=== PATIENT | female | born 1995 | race Caucasian/White ===

== ENCOUNTER 2022-09-19 10:46 | Inpatient (IN) | payer MEDICAID, MEDICARE ==
[~2022-09-19] VITALS: Ht 160 cm; Wt 132.9 kg
[2022-09-19 11:06] VITALS: BP 123/71
--- NOTE | 2022-09-19 11:23 | NUR ---
Patient was wheelchair assisted to restroom, urine sample obtained.
--- NOTE | 2022-09-19 11:26 | NUR ---
Patient being evaluated by physician at bedside.
--- NOTE | 2022-09-19 11:50 | NUR ---
27 y/o female bib as a referal Dr. Golden's office. Per patient she was told she "has an opened cervix." Denies any pain or vaginal bleeding. Per patient, only takes baby Aspirin, Iron and Prenatals. LMP 04/28/22 Medical History: DM, HTN NKDA
--- NOTE | 2022-09-19 12:34 | NUR ---
Ultrasound at bedside.
[2022-09-19] MEDS ORDERED: ASPI-1822 PO (12:49)
[2022-09-19] MEDS ORDERED: FERR-13 PO (12:49)
[2022-09-19] MEDS ORDERED: PNV91TAB10 PO (12:49)
--- NOTE | 2022-09-19 12:49 | NUR ---
med rec complete
--- NOTE | 2022-09-19 14:12 | NUR ---
Patient is laying in bed, all needs met by staff.
[2022-09-19] MEDS ORDERED: DEXTROSE 50% 50 ML SYR IVP PRN (14:45)
[2022-09-19] MEDS ORDERED: NACL 0.9% 1,000 ML IV SCH (14:45)
[2022-09-19] MEDS ORDERED: ACETAMINOPHEN 325 MG TAB PO PRN (14:45)
[2022-09-19] MEDS ORDERED: INSULIN LISPRO SLIDING SCALE 100 UNITS/ML VIAL SUBQ PRN (14:45)
[2022-09-19 15:47] VITALS: BP 128/68
--- NOTE | 2022-09-19 15:47 | NUR ---
Patient will be admitted to care of Dr. Gurrola. Admited to L&D. Will go to room 4. Belongings list completed. Report to [email or web address].
[2022-09-19 15:51] LABS: BASOPHILS # (AUTO) 0.1 K/uL (0.00-0.22); BASOPHILS % (AUTO) 0.5 % (0.0-2.0); EOSINOPHILS # (AUTO) 0.1 K/uL (0-0.4); EOSINOPHILS % (AUTO) 0.7 % (0.0-4.0); HEMATOCRIT 34.5 % (36-48); HEMOGLOBIN 11.4 g/dL (12.0-16.0); LYMPHOCYTES # (AUTO) 3.3 K/uL (2.5-16.5); LYMPHOCYTES % (AUTO) 22.9 % (20.5-51.1); MEAN CORPUSCULAR HEMOGLOBIN 28 pg (27-31); MEAN CORPUSCULAR HGB CONC 33 g/dL (33-37); MEAN CORPUSCULAR VOLUME 85.1 fL (80-94); MONOCYTES # (AUTO) 0.8 K/uL (0.8-1.0); MONOCYTES % (AUTO) 5.5 % (1.7-9.3); NEUTROPHILS # (AUTO) 10.1 K/uL (1.8-7.7); NEUTROPHILS % (AUTO) 70.4 % (42.2-75.2); PLATELET COUNT (AUTO) 363 K/uL (140-450); RED BLOOD CELL COUNT(AUTO) 4.05 MIL/uL (4.20-5.40); RED CELL DISTRIBUTION WIDTH 14.7 % (11.6-13.7); WHITE BLOOD COUNT (AUTO) 14.3 K/uL (4.8-10.8)
[2022-09-19 16:10] LABS: PROTHROMBIN TIME 9.9 secs (10.8-13.4)
[2022-09-19 16:12] LABS: ANION GAP 12.8 (8-16); CARBON DIOXIDE 23.8 mmol/L (21-32); CREATININE 0.3 mg/dL (0.6-1.3); POTASSIUM 3.6 mmol/L (3.5-5.1)
[2022-09-19 16:24] LABS: CHOL/HDL RATIO 3.5 (1-4.5); FREE T4 (FREE THYROXINE) 0.92 ng/dL (0.76-1.46); MAGNESIUM 1.7 mg/dL (1.8-2.4); PHOSPHORUS 4.3 mg/dL (2.5-4.9)
[2022-09-19] MEDS ORDERED: BLOOD GLUCOSE MONITORING 1 DEV DEV FS SCH (16:30)
--- NOTE | 2022-09-19 16:44 | NUR ---
The patient's care was reviewed and supervised by [place] [facility], RN.
[2022-09-19] MEDS: LACTATED RINGERS 1,000 ML IV SCH (18:11)
[2022-09-19 20:11] LABS: APPEARANCE,URINE CLEAR (CLEAR); BILIRUBIN,URINE NEGATIVE (NEGATIVE); BLOOD, URINE NEGATIVE (NEGATIVE); COLOR,URINE YELLOW (YELLOW); LEUKOCYTE ESTERASE ,URINE NEGATIVE (NEGATIVE); NITRITE, URINE NEGATIVE (NEGATIVE); UGLUCOSE NEGATIVE (NEGATIVE)
[2022-09-19 20:35] LABS: BARBITURATE, URINE NEGATIVE ng/ml (NEG <=200); BENZODIAZEPINE, URINE NEGATIVE ng/mL (NEG <=200); CANNABINOID, URINE NEGATIVE ng/mL (NEG <=50); COCAINE, URINE NEGATIVE ng/mL (NEG <=300); OPIATE, URINE NEGATIVE ng/mL (NEG <=2000); PHENCYCLIDINE SCREEN,URINE NEGATIVE ng/mL (NEG <=25)
[2022-09-19] MEDS ORDERED: DOCUSATE SODIUM 100 MG GELCAP PO SCH (21:00)
[2022-09-20] MEDS: LACTATED RINGERS 1,000 ML IV SCH ×4 (00:03→20:33)
[2022-09-20 05:24] LABS: BASOPHILS % (AUTO) 0.2 % (0.0-2.0); EOSINOPHILS # (AUTO) 0.1 K/uL (0-0.4); HEMATOCRIT 33.8 % (36-48); LYMPHOCYTES # (AUTO) 3.4 K/uL (2.5-16.5); LYMPHOCYTES % (AUTO) 27.9 % (20.5-51.1); MEAN CORPUSCULAR HEMOGLOBIN 28 pg (27-31); MEAN CORPUSCULAR HGB CONC 33 g/dL (33-37); MEAN CORPUSCULAR VOLUME 86.2 fL (80-94); MONOCYTES # (AUTO) 0.9 K/uL (0.8-1.0); MONOCYTES % (AUTO) 7.4 % (1.7-9.3); NEUTROPHILS # (AUTO) 7.8 K/uL (1.8-7.7); NEUTROPHILS % (AUTO) 63.5 % (42.2-75.2); PLATELET COUNT (AUTO) 321 K/uL (140-450); RED BLOOD CELL COUNT(AUTO) 3.92 MIL/uL (4.20-5.40); RED CELL DISTRIBUTION WIDTH 14.6 % (11.6-13.7); WHITE BLOOD COUNT (AUTO) 12.3 K/uL (4.8-10.8)
[2022-09-20 05:56] LABS: ANION GAP 9.7 (8-16); CARBON DIOXIDE 26.7 mmol/L (21-32); CREATININE 0.4 mg/dL (0.6-1.3); POTASSIUM 3.4 mmol/L (3.5-5.1)
[2022-09-20 06:06] LABS: MAGNESIUM 1.7 mg/dL (1.8-2.4); PHOSPHORUS 4.4 mg/dL (2.5-4.9)
--- NOTE | 2022-09-20 08:40 | NUR ---
PATIENT HAS BEEN SCREENED AND CATEGORIZED LOW NUTRITION RISK. PATIENT WILL BE SEEN WITHIN 7 DAYS OF ADMISSION. 09/26/[address] Addendum: 09/20/22 at [address] PATIENT HAS BEEN SCREENED AND CATEGORIZED HIGH NUTRITION RISK. PATIENT WILL BE SEEN WITHIN 1-2 DAYS OF ADMISSION. 09/20/22-09/22/[address]
[2022-09-20] MEDS ORDERED: FERROUS SULFATE 325 MG TABEC PO SCH ×2 (09:00→09:17)
[2022-09-20] MEDS ORDERED: PANTOPRAZOLE 40 MG INJ VIAL IVP SCH (09:00)
[2022-09-20] MEDS ORDERED: POTASSIUM CHLORIDE 10 MEQ TABER PO PRN (10:30)
[2022-09-20] MEDS ORDERED: MAG SULF 2000 MG/WATER PREMIX 50 ML IV PRN (10:30)
[2022-09-20] MEDS ORDERED: POTASSIUM CHLORIDE 20% 40 MEQ/15 ML UDC GT SCH (13:30)
[2022-09-20] MEDS ORDERED: BLOOD GLUCOSE MONITORING 1 DEV DEV FS SCH ×2 (20:10→21:00)
[2022-09-21] MEDS ORDERED: POTASSIUM CHLORIDE 20% 40 MEQ/15 ML UDC GT SCH (09:00)
== END 2022-09-20 21:45 | disposition home or self-care (01) | DRG 566 ==
LOC: MED 10:46 → MLD 14:18
PROVIDERS: ADMIT Obstetrics & Gynecology; ATTEND Obstetrics & Gynecology
DX: O34.32 Maternal care for cervical incompetence, second trimester (principal); O16.2 Unspecified maternal hypertension, second trimester; O24.912 Unspecified diabetes mellitus in pregnancy, second trimester; O99.012 Anemia complicating pregnancy, second trimester; Z20.822 Contact with and (suspected) exposure to COVID-19; Z3A.19 19 weeks gestation of pregnancy; Z79.82 Long term (current) use of aspirin; Z79.899 Other long term (current) drug therapy
CPT/HCPCS: 36415; 76817; 80048; 80305; 81003; 82150; 82948; 83036; 83690; 83735; 83880; 84100; 84439; 84443; 85025; 85610; 85730; 87081; 99285; C9113; Q0092

== ENCOUNTER 2022-10-19 21:00 | Observation (INO) | payer MEDICAID ==
[~2022-10-19] VITALS: Ht 160 cm; Wt 131.1 kg
[~2022-10-19 21:00] MED LIST: ASPI-1822 PO; FERR-13 PO; PNV91TAB10 PO
[2022-10-19 21:55] VITALS: BP 130/69; PULSE 109; RESP 18; TEMP 98.7
[2022-10-19] MEDS ORDERED: cefTRIAXone 1,000 MG in LIDOCAINE MPF 1% 2.1 ML IM ONE (22:30)
[2022-10-19] MEDS ORDERED: LIDOCAINE 1% 500 MG/ 50 ML VIAL INJ ONE (22:30)
[2022-10-19] MEDS ORDERED: cefTRIAXone 1,000 MG in LIDOCAINE MPF 1% 2.1 ML IM SCH (22:55)
[2022-10-19] MEDS ORDERED: cefTRIAXone 1,000 MG VIAL ONE (23:04)
[2022-10-20] MEDS ORDERED: FERROUS SULFATE 325 MG TABEC PO SCH (09:00)
[2022-10-20] MEDS ORDERED: ASPIRIN 81 MG TAB.CHEW PO SCH (09:00)
== END 2022-10-19 23:25 | disposition home or self-care (01) ==
LOC: MLD 21:00
PROVIDERS: ADMIT Obstetrics & Gynecology; ATTEND Obstetrics & Gynecology
DX: O26.892 Other specified pregnancy related conditions, second trimester (principal); R10.9 Unspecified abdominal pain; Z3A.25 25 weeks gestation of pregnancy
CPT/HCPCS: 87086; 96372; G0378; J0696

== ENCOUNTER 2022-12-09 17:34 | Inpatient (IN) | payer MEDICAID ==
[~2022-12-09] VITALS: Ht 162.6 cm; Wt 136.1 kg
[2022-12-09 18:43] VITALS: BP 125/57; PULSE 116; RESP 18; TEMP 97.9
[2022-12-09 19:13] LABS: BASOPHILS % (AUTO) 0.2 % (0.0-2.0); EOSINOPHILS % (AUTO) 0.3 % (0.0-4.0); HEMATOCRIT 37.4 % (36-48); HEMOGLOBIN 12.2 g/dL (12.0-16.0); LYMPHOCYTES % (AUTO) 19.7 % (20.5-51.1); MEAN CORPUSCULAR HEMOGLOBIN 28 pg (27-31); MEAN CORPUSCULAR HGB CONC 33 g/dL (33-37); MEAN CORPUSCULAR VOLUME 84.7 fL (80-94); MONOCYTES # (AUTO) 0.9 K/uL (0.8-1.0); MONOCYTES % (AUTO) 6.1 % (1.7-9.3); NEUTROPHILS # (AUTO) 11.2 K/uL (1.8-7.7); NEUTROPHILS % (AUTO) 73.7 % (42.2-75.2); PLATELET COUNT (AUTO) 368 K/uL (140-450); RED BLOOD CELL COUNT(AUTO) 4.41 MIL/uL (4.20-5.40); RED CELL DISTRIBUTION WIDTH 13.8 % (11.6-13.7); WHITE BLOOD COUNT (AUTO) 15.2 K/uL (4.8-10.8)
[2022-12-09 19:34] LABS: ALBUMIN 2.7 g/dL (3.4-5.0); ANION GAP 15.9 (8-16); CALCIUM 8.5 mg/dL (8.5-10.1); CARBON DIOXIDE 21.8 mmol/L (21-32); CREATININE 0.5 mg/dL (0.6-1.3); POTASSIUM 3.7 mmol/L (3.5-5.1); TOTAL BILIRUBIN 0.2 mg/dL (0.0-1.0); TOTAL PROTEIN, SERUM 7.5 g/dL (6.4-8.2); URIC ACID 2.6 mg/dL (2.6-7.2)
[2022-12-09 19:42] LABS: INR 0.93 (0.8-1.2); PARTIAL THROMBOPLASTIN TIME 29.2 secs (22-35.6); PROTHROMBIN TIME 9.8 secs (10.8-13.4)
[2022-12-09] MEDS: BETAMETH ACET/BETAMETH NA PH 30 MG/5 ML VIAL IM SCH (23:00)
[2022-12-09] MEDS: TERBUTALINE 1 MG/ML VIAL SUBQ SCH ×2 (23:01→23:34)
[2022-12-09] MEDS: APAP/BUTAL/CAFF 325/50/40 MG 1 TAB PO PRN (23:09)
[2022-12-10] MEDS ORDERED: ONDANSETRON 4 MG/2 ML VIAL IM ONE ×2 (05:00→05:30)
[2022-12-10] MEDS ORDERED: MORPHINE SULFATE 4 MG/ML SYR IM ONE ×2 (05:00→05:30)
[2022-12-10] MEDS ORDERED: NIFEdipine 10 MG CAPLF PO SCH (08:33)
[2022-12-10] MEDS ORDERED: TERBUTALINE 1 MG/ML VIAL SUBQ SCH (08:35)
[2022-12-10] MEDS: TERBUTALINE 1 MG/ML VIAL SUBQ SCH (08:54)
[2022-12-10] MEDS: APAP/BUTAL/CAFF 325/50/40 MG 1 TAB PO PRN (12:44)
[2022-12-10 14:17] LABS: URINE TOTAL PROTEIN 16.8 mg/dL (0-12)
[2022-12-10 14:19] LABS: URINE TPRO CREAT RATIO 0.4 (0-0.20)
[2022-12-10] MEDS ORDERED: ONDANSETRON 4 MG/2 ML VIAL ONE (14:50)
[2022-12-10] MEDS ORDERED: MORPHINE SULFATE 10 MG/ML VIAL ONE (17:49)
[2022-12-10] MEDS ORDERED: MAG SULF 2000 MG/WATER PREMIX 100 ML IV ONE (19:35)
[2022-12-10] MEDS: NIFEdipine 10 MG CAPLF PO SCH (20:41)
[2022-12-10] MEDS: MAG SULF 20 GM/H2O PREMIX DRIP 500 ML IV PRN (22:25)
[2022-12-10] MEDS: LACTATED RINGERS 1,000 ML IV SCH (23:40)
[2022-12-10] MEDS: BETAMETH ACET/BETAMETH NA PH 30 MG/5 ML VIAL IM SCH (23:51)
[2022-12-11] MEDS: APAP/BUTAL/CAFF 325/50/40 MG 1 TAB PO PRN (03:24)
[2022-12-11] MEDS: NIFEdipine 10 MG CAPLF PO SCH ×3 (05:05→18:40)
[2022-12-11] MEDS: LACTATED RINGERS 1,000 ML IV SCH ×2 (06:04→15:29)
[2022-12-11] MEDS: MAG SULF 20 GM/H2O PREMIX DRIP 500 ML IV PRN ×2 (08:36→21:27)
[2022-12-12] MEDS: NIFEdipine 10 MG CAPLF PO SCH ×3 (00:08→12:17)
[2022-12-12] MEDS: LACTATED RINGERS 1,000 ML IV SCH (05:47)
[2022-12-12] MEDS: MAG SULF 20 GM/H2O PREMIX DRIP 500 ML IV PRN (07:57)
[2022-12-12] MEDS ORDERED: MORPHINE SULFATE 10 MG/ML VIAL IVP PRN (12:00)
[2022-12-12] MEDS ORDERED: ONDANSETRON 4 MG/2 ML VIAL IVP PRN (12:00)
[2022-12-12 12:14] VITALS: BP 116/67; PULSE 87; RESP 16; O2SAT 97
== END 2022-12-12 15:55 | disposition home or self-care (01) | DRG 566 ==
LOC: MLD 17:34 → OBSVTOIN 12-10 19:39
PROVIDERS: ADMIT Obstetrics & Gynecology; ATTEND Obstetrics & Gynecology
DX: O14.93 Unspecified pre-eclampsia, third trimester (principal); O60.03 Preterm labor without delivery, third trimester; Z3A.30 30 weeks gestation of pregnancy; E66.01 Morbid (severe) obesity due to excess calories; O13.3 Gestational [pregnancy-induced] hypertension without significant proteinuria, third trimester; O99.213 Obesity complicating pregnancy, third trimester; O24.419 Gestational diabetes mellitus in pregnancy, unspecified control
CPT/HCPCS: G0378 ×7; 36415; 76805; 76817; 80053; 82570; 83735; 84550; 85025; 85384; 85610; 85730; 86886; 86900; 86901; J0702; J2270; J2405; J3105; J3475; Q0092

== ENCOUNTER 2022-12-16 07:17 | Observation (INO) | payer MEDICAID ==
[~2022-12-16] VITALS: Ht 162.6 cm; Wt 136.1 kg
[2022-12-16] MEDS ORDERED: NIFE30TE5 PO (07:50)
[2022-12-16 07:53] VITALS: BP 133/76; PULSE 113; RESP 14; TEMP 97.5
[2022-12-16] MEDS: LACTATED RINGERS 1,000 ML IV SCH ×4 (08:12→17:51)
[2022-12-16] MEDS ORDERED: TERBUTALINE 1 MG/ML VIAL SUBQ SCH (08:35)
[2022-12-16] MEDS ORDERED: TERBUTALINE 1 MG/ML VIAL SUBQ ONE (08:41)
[2022-12-16 09:37] LABS: APPEARANCE,URINE CLEAR (CLEAR); BILIRUBIN,URINE NEGATIVE (NEGATIVE); BLOOD, URINE NEGATIVE (NEGATIVE); COLOR,URINE YELLOW (YELLOW); LEUKOCYTE ESTERASE ,URINE 2+ (NEGATIVE); NITRITE, URINE NEGATIVE (NEGATIVE); PH,URINE 6.5 (5.0-9.0); PROTEIN,URINE NEGATIVE (NEGATIVE); UGLUCOSE NEGATIVE (NEGATIVE); UROBILINOGEN,URINE 0.2 EU/dL (0.2 - 1)
[2022-12-16] MEDS: CYCLOBENZAPRINE 10 MG TAB PO SCH ×3 (09:39→17:02)
[2022-12-16] MEDS: ONDANSETRON 4 MG/2 ML VIAL IVP PRN (09:44)
[2022-12-16] MEDS: MORPHINE SULFATE 10 MG/ML VIAL IVP PRN ×3 (09:46→20:12)
[2022-12-16 09:52] LABS: BACTERIA,URINE 2+ /HPF (None Seen); RBC,URINE 0-5 /HPF (0-5); SQUAMOUS EPITHELIAL CELL,UR 80-100 /LPF (0-3 (FEW))
[2022-12-16] MEDS ORDERED: NIFEdipine 10 MG CAPLF PO SCH (19:25)
[2022-12-17] MEDS: MORPHINE SULFATE 10 MG/ML VIAL IVP PRN ×3 (00:20→13:29)
[2022-12-17] MEDS: LACTATED RINGERS 1,000 ML IV SCH ×4 (00:48→20:18)
[2022-12-17] MEDS: ONDANSETRON 4 MG/2 ML VIAL IVP PRN ×2 (03:09→09:22)
[2022-12-17] MEDS ORDERED: NIFEdipine 30 MG TABER PO SCH (06:00)
[2022-12-17] MEDS: NIFEdipine 10 MG CAPLF PO SCH ×3 (06:32→19:08)
[2022-12-17] MEDS: CYCLOBENZAPRINE 10 MG TAB PO SCH (09:23)
[2022-12-18] MEDS: CYCLOBENZAPRINE 10 MG TAB PO SCH ×2 (02:57→06:23)
[2022-12-18] MEDS: ONDANSETRON 4 MG/2 ML VIAL IVP PRN (02:57)
[2022-12-18 03:10] VITALS: BP 121/64; PULSE 104; RESP 18; O2SAT 99
[2022-12-18] MEDS: MORPHINE SULFATE 10 MG/ML VIAL IVP PRN (03:10)
[2022-12-18] MEDS: LACTATED RINGERS 1,000 ML IV SCH (03:11)
[2022-12-18] MEDS: NIFEdipine 10 MG CAPLF PO SCH ×2 (03:19→09:47)
[2022-12-18] MEDS ORDERED: oxyCODONE/APAP 5/325 MG 1 TAB TAB PO PRN (03:35)
== END 2022-12-18 10:25 | disposition home or self-care (01) ==
LOC: MLD 07:17 → MFCC 21:20
PROVIDERS: ADMIT Obstetrics & Gynecology; ATTEND Obstetrics & Gynecology
DX: O14.93 Unspecified pre-eclampsia, third trimester (principal); O60.03 Preterm labor without delivery, third trimester; Z3A.33 33 weeks gestation of pregnancy
CPT/HCPCS: 36415; 76817; 81001; 82731; 87086; 96361; 96372; 96374; 96375; 96376; G0378; J2270; J2405; J3105; J7120; Q0092

== ENCOUNTER 2023-01-03 01:55 | Observation (INO) | payer MEDICAID ==
[~2023-01-03] VITALS: Ht 160 cm; Wt 131.5 kg
[~2023-01-03 01:55] MED LIST changes: +NIFE30TE5 PO
[2023-01-03] MEDS: LACTATED RINGERS 1,000 ML IV SCH ×3 (06:26→11:01)
[2023-01-03] MEDS: MORPHINE SULFATE 10 MG/ML VIAL IVP PRN ×2 (06:26→12:51)
[2023-01-03] MEDS: ONDANSETRON 4 MG/2 ML VIAL IVP PRN ×2 (07:59→13:46)
[2023-01-03] MEDS ORDERED: LACTATED RINGERS 1,000 ML IV SCH (08:46)
[2023-01-03] MEDS: NIFEdipine 10 MG CAPLF PO SCH ×2 (08:49→15:09)
[2023-01-03 09:00] LABS: BASOPHILS % (AUTO) 0.1 % (0.0-2.0); EOSINOPHILS # (AUTO) 0.1 K/uL (0-0.4); EOSINOPHILS % (AUTO) 0.6 % (0.0-4.0); HEMATOCRIT 35.3 % (36-48); HEMOGLOBIN 11.6 g/dL (12.0-16.0); LYMPHOCYTES # (AUTO) 3.5 K/uL (2.5-16.5); LYMPHOCYTES % (AUTO) 26.4 % (20.5-51.1); MEAN CORPUSCULAR HEMOGLOBIN 28 pg (27-31); MEAN CORPUSCULAR HGB CONC 33 g/dL (33-37); MEAN CORPUSCULAR VOLUME 83.6 fL (80-94); MONOCYTES # (AUTO) 0.8 K/uL (0.8-1.0); MONOCYTES % (AUTO) 6.3 % (1.7-9.3); NEUTROPHILS # (AUTO) 8.8 K/uL (1.8-7.7); NEUTROPHILS % (AUTO) 66.6 % (42.2-75.2); PLATELET COUNT (AUTO) 351 K/uL (140-450); RED BLOOD CELL COUNT(AUTO) 4.23 MIL/uL (4.20-5.40); RED CELL DISTRIBUTION WIDTH 14.1 % (11.6-13.7); WHITE BLOOD COUNT (AUTO) 13.2 K/uL (4.8-10.8)
[2023-01-03 09:21] LABS: ALBUMIN 2.5 g/dL (3.4-5.0); ANION GAP 11.6 (8-16); CALCIUM 8.5 mg/dL (8.5-10.1); CARBON DIOXIDE 23.9 mmol/L (21-32); CREATININE 0.5 mg/dL (0.6-1.3); POTASSIUM 3.5 mmol/L (3.5-5.1); TOTAL BILIRUBIN 0.3 mg/dL (0.0-1.0); TOTAL PROTEIN, SERUM 6.9 g/dL (6.4-8.2)
[2023-01-03 12:51] VITALS: BP 139/80; PULSE 99; RESP 18; O2SAT 97
[2023-01-03] MEDS ORDERED: TERBUTALINE 1 MG/ML VIAL SUBQ SCH (15:35)
[2023-01-03] MEDS ORDERED: oxyCODONE/APAP 5/325 MG 1 TAB TAB PO SCH (17:11)
== END 2023-01-03 20:05 | disposition home or self-care (01) ==
LOC: MLD 01:55
PROVIDERS: ADMIT Obstetrics & Gynecology; ATTEND Obstetrics & Gynecology
DX: O62.9 Abnormality of forces of labor, unspecified (principal); O99.213 Obesity complicating pregnancy, third trimester; E66.01 Morbid (severe) obesity due to excess calories; O10.913 Unspecified pre-existing hypertension complicating pregnancy, third trimester; O24.113 Pre-existing type 2 diabetes mellitus, in pregnancy, third trimester; Z3A.35 35 weeks gestation of pregnancy
CPT/HCPCS: 36415; 80053; 81000; 85025; 96361; 96372; 96374; 96375; 96376; G0378; J2270; J2405; J3105

== ENCOUNTER 2023-01-09 16:58 | Inpatient (IN) | payer MEDICAID ==
[~2023-01-09] VITALS: Ht 160 cm; Wt 132.9 kg
[~2023-01-09 16:58] MED LIST changes: +MEASLES, MUMPS, AND RUBELLA 1 VIAL SQVAC ONE; +ROPIVACAINE 0.2%/NS PREMIX 200 ML EPI ONE; +oxyCODONE/APAP 5/325 MG 1 TAB TAB PO PRN
[2023-01-09] MEDS ORDERED: LACTATED RINGERS 1,000 ML IV SCH (17:25)
[2023-01-09] MEDS ORDERED: ceFAZolin Sod. 2,000 MG in DEXTROSE 5% 100 ML IV ONE (17:25)
[2023-01-09 17:46] LABS: BASOPHILS % (AUTO) 0.3 % (0.0-2.0); EOSINOPHILS % (AUTO) 0.3 % (0.0-4.0); HEMATOCRIT 40.3 % (36-48); HEMOGLOBIN 13.4 g/dL (12.0-16.0); LYMPHOCYTES # (AUTO) 2.8 K/uL (2.5-16.5); LYMPHOCYTES % (AUTO) 21.2 % (20.5-51.1); MEAN CORPUSCULAR HEMOGLOBIN 28 pg (27-31); MEAN CORPUSCULAR HGB CONC 33 g/dL (33-37); MEAN CORPUSCULAR VOLUME 83.2 fL (80-94); MONOCYTES # (AUTO) 0.9 K/uL (0.8-1.0); MONOCYTES % (AUTO) 6.4 % (1.7-9.3); NEUTROPHILS # (AUTO) 9.5 K/uL (1.8-7.7); NEUTROPHILS % (AUTO) 71.8 % (42.2-75.2); PLATELET COUNT (AUTO) 385 K/uL (140-450); RED BLOOD CELL COUNT(AUTO) 4.84 MIL/uL (4.20-5.40); RED CELL DISTRIBUTION WIDTH 14.3 % (11.6-13.7); WHITE BLOOD COUNT (AUTO) 13.2 K/uL (4.8-10.8)
[2023-01-09 17:48] LABS: APPEARANCE,URINE CLOUDY (CLEAR); BILIRUBIN,URINE 1+ (NEGATIVE); BLOOD, URINE TRACE-I (NEGATIVE); COLOR,URINE YELLOW (YELLOW); LEUKOCYTE ESTERASE ,URINE 1+ (NEGATIVE); NITRITE, URINE NEGATIVE (NEGATIVE); PROTEIN,URINE 1+ (NEGATIVE); UGLUCOSE NEGATIVE (NEGATIVE)
[2023-01-09 17:57] LABS: ICTOTEST NEGATIVE (NEGATIVE)
[2023-01-09 17:58] LABS: BACTERIA,URINE 2+ /HPF (None Seen); MUCUS,URINE 2+ /LPF (None Seen); RBC,URINE 11-20 (MOD) /HPF (0-5); SQUAMOUS EPITHELIAL CELL,UR 20-50 /LPF (0-3 (FEW)); TRICHOMONAS,URINE None Seen /HPF (None Seen); YEAST,URINE None Seen /HPF (None Seen)
[2023-01-09 18:04] LABS: INR 0.9 (0.8-1.2); PARTIAL THROMBOPLASTIN TIME 30.9 secs (22-35.6); PROTHROMBIN TIME 9.5 secs (10.8-13.4)
[2023-01-09 18:08] LABS: ALBUMIN 2.9 g/dL (3.4-5.0); ANION GAP 16.4 (8-16); CALCIUM 8.7 mg/dL (8.5-10.1); CARBON DIOXIDE 21.6 mmol/L (21-32); CREATININE 0.7 mg/dL (0.6-1.3); TOTAL BILIRUBIN 0.3 mg/dL (0.0-1.0)
[2023-01-09] MEDS ORDERED: ROPIVACAINE 0.2%/NS PREMIX 200 ML EPI ONE (18:22)
[2023-01-09 18:25] LABS: HIV RAPID SCREEN NON-REACTIVE (NON REACTIV)
[2023-01-09] MEDS ORDERED: CARBOPROST 250 MCG/ML AMP IM PRN (18:25)
[2023-01-09] MEDS ORDERED: METHYLERGONOVINE 0.2 MG/ML AMP IM PRN (18:25)
[2023-01-09 18:30] VITALS: BP 110/58; PULSE 120; RESP 18; TEMP 98.4
[2023-01-09] MEDS ORDERED: MORPHINE PRES FREE 10 MG/10 ML AMP IV ONE (18:33)
[2023-01-09] MEDS ORDERED: ONDANSETRON 4 MG/2 ML VIAL IVP ONE (19:11)
[2023-01-09] MEDS ORDERED: MIDAZOLAM 2 MG/2 ML VIAL ONE (19:24)
[2023-01-09] MEDS ORDERED: diphenhydrAMINE 50 MG/ML VIAL IVP PRN ×2 (19:30→19:55)
[2023-01-09] MEDS ORDERED: NALOXONE 0.4 MG/ML VIAL IVP PRN (19:30)
[2023-01-09] MEDS ORDERED: diphenhydrAMINE 50 MG/ML VIAL ONE (19:36)
[2023-01-09] MEDS ORDERED: ONDANSETRON 4 MG/2 ML VIAL IVP PRN (19:55)
[2023-01-09] MEDS: OXYTOCIN 20 UNITS/LR PREMIX 1,000 ML IV ONE ×2 (20:23→20:45)
[2023-01-09] MEDS: KETOROLAC 30 MG/ML VIAL IVP PRN (22:49)
[2023-01-10] MEDS ORDERED: MEASLES, MUMPS, AND RUBELLA 1 VIAL SQVAC ONE (01:40)
[2023-01-10] MEDS ORDERED: OXYTOCIN 20 UNITS/LR PREMIX 1,000 ML IV ONE ×2 (04:22→12:06)
[2023-01-10] MEDS: OXYTOCIN 20 UNITS in LACTATED RINGERS 1,000 ML IV SCH ×2 (04:35→12:51)
[2023-01-10 06:03] LABS: BASOPHILS % (AUTO) 0.2 % (0.0-2.0); EOSINOPHILS % (AUTO) 0.3 % (0.0-4.0); HEMATOCRIT 31.6 % (36-48); HEMOGLOBIN 10.6 g/dL (12.0-16.0); LYMPHOCYTES # (AUTO) 3.2 K/uL (2.5-16.5); LYMPHOCYTES % (AUTO) 24.6 % (20.5-51.1); MEAN CORPUSCULAR HEMOGLOBIN 28 pg (27-31); MEAN CORPUSCULAR HGB CONC 33 g/dL (33-37); MEAN CORPUSCULAR VOLUME 83.3 fL (80-94); MONOCYTES % (AUTO) 7.8 % (1.7-9.3); NEUTROPHILS # (AUTO) 8.7 K/uL (1.8-7.7); NEUTROPHILS % (AUTO) 67.1 % (42.2-75.2); PLATELET COUNT (AUTO) 294 K/uL (140-450); RED CELL DISTRIBUTION WIDTH 14.5 % (11.6-13.7); WHITE BLOOD COUNT (AUTO) 12.9 K/uL (4.8-10.8)
[2023-01-10] MEDS: ASPIRIN 81 MG TAB.CHEW PO SCH (08:58)
[2023-01-10] MEDS ORDERED: FERROUS SULFATE 325 MG TABEC PO SCH (09:00)
[2023-01-10 10:50] LABS: RAPID PLASMA REAGIN NON-REACTIVE (Non Reactiv)
[2023-01-10] MEDS ORDERED: MEASLES, MUMPS, AND RUBELLA 1 VIAL SQVAC SCH (12:20)
[2023-01-10] MEDS: KETOROLAC 30 MG/ML VIAL IVP PRN (12:42)
[2023-01-10] MEDS: IBUPROFEN 600 MG TAB PO SCH (18:23)
[2023-01-10] MEDS: oxyCODONE/APAP 5/325 MG 1 TAB TAB PO PRN (21:17)
[2023-01-10] MEDS: SIMETHICONE 80 MG TAB.CHEW PO PRN (21:22)
[2023-01-11] MEDS: IBUPROFEN 600 MG TAB PO SCH ×4 (00:04→17:19)
[2023-01-11] MEDS ORDERED: CAMERA MC ONE (02:37)
[2023-01-11] MEDS: oxyCODONE/APAP 5/325 MG 1 TAB TAB PO PRN ×3 (04:15→18:58)
[2023-01-11] MEDS: SIMETHICONE 80 MG TAB.CHEW PO PRN ×2 (06:04→12:31)
[2023-01-11] MEDS: bisacodyL 10 MG SUPP RC SCH ×2 (09:00→13:17)
[2023-01-11] MEDS: ASPIRIN 81 MG TAB.CHEW PO SCH (09:33)
[2023-01-11] MEDS: FERROUS SULFATE 325 MG TABEC PO SCH (09:34)
[2023-01-12] MEDS: oxyCODONE/APAP 5/325 MG 1 TAB TAB PO PRN ×3 (02:57→19:36)
[2023-01-12] MEDS: IBUPROFEN 600 MG TAB PO SCH ×4 (06:11→17:54)
[2023-01-12] MEDS: FERROUS SULFATE 325 MG TABEC PO SCH (08:43)
[2023-01-12] MEDS: ASPIRIN 81 MG TAB.CHEW PO SCH (08:43)
[2023-01-12] MEDS: bisacodyL 10 MG SUPP RC SCH (08:50)
[2023-01-13] MEDS: oxyCODONE/APAP 5/325 MG 1 TAB TAB PO PRN (02:53)
[2023-01-13] MEDS ORDERED: CAMERA MC ONE (04:15)
[2023-01-13] MEDS: IBUPROFEN 600 MG TAB PO SCH (05:41)
[2023-01-13] MEDS: FERROUS SULFATE 325 MG TABEC PO SCH (08:39)
[2023-01-13] MEDS: ASPIRIN 81 MG TAB.CHEW PO SCH (08:40)
== END 2023-01-13 11:30 | disposition home or self-care (01) | DRG 540 ==
LOC: MLD 16:58 → MFCC 20:40
PROVIDERS: ADMIT Obstetrics & Gynecology; ATTEND Obstetrics & Gynecology
PROC: 10D00Z1 Extraction of Products of Conception, Low, Open Approach (ICD-10-PCS; principal; 2023-01-09 19:00)
DX: O32.1XX0 Maternal care for breech presentation, not applicable or unspecified (principal); O10.92 Unspecified pre-existing hypertension complicating childbirth; O99.214 Obesity complicating childbirth; O24.429 Gestational diabetes mellitus in childbirth, unspecified control; O36.63X0 Maternal care for excessive fetal growth, third trimester, not applicable or unspecified; O76 Abnormality in fetal heart rate and rhythm complicating labor and delivery; E66.01 Morbid (severe) obesity due to excess calories; Z20.822 Contact with and (suspected) exposure to COVID-19; O75.89 Other specified complications of labor and delivery; Z3A.36 36 weeks gestation of pregnancy; Z37.0 Single live birth
CPT/HCPCS: 36415; 80053; 81001; 85025; 85610; 85730; 86592; 86762; 86886; 86900; 86901; 87086; 87340; J1200; J1885; J2250; J2270; J2405; J2590; J7060; J7120

== ENCOUNTER 2023-08-13 20:07 | Inpatient (IN) | payer MEDICAID ==
[~2023-08-13] VITALS: Ht 165.1 cm; Wt 113.4 kg
[~2023-08-13 20:07] MED LIST changes: -ASPI-1822 PO; -FERR-13 PO; -MEASLES, MUMPS, AND RUBELLA 1 VIAL SQVAC ONE; -NIFE30TE5 PO; -ROPIVACAINE 0.2%/NS PREMIX 200 ML EPI ONE; -oxyCODONE/APAP 5/325 MG 1 TAB TAB PO PRN
[2023-08-13 20:18] VITALS: BP 112/86; PULSE 100; RESP 20; TEMP 97.5; O2SAT 98
[2023-08-13 20:46] LABS: BASOPHILS # (AUTO) 0.1 K/uL (0.00-0.22); BASOPHILS % (AUTO) 0.3 % (0.0-2.0); EOSINOPHILS # (AUTO) 0.1 K/uL (0-0.4); EOSINOPHILS % (AUTO) 0.8 % (0.0-4.0); HEMATOCRIT 37.3 % (36-48); HEMOGLOBIN 12.2 g/dL (12.0-16.0); LYMPHOCYTES # (AUTO) 2.3 K/uL (2.5-16.5); LYMPHOCYTES % (AUTO) 13.1 % (20.5-51.1); MEAN CORPUSCULAR HEMOGLOBIN 27 pg (27-31); MEAN CORPUSCULAR HGB CONC 33 g/dL (33-37); MEAN CORPUSCULAR VOLUME 81.7 fL (80-94); MONOCYTES # (AUTO) 1.4 K/uL (0.8-1.0); MONOCYTES % (AUTO) 8.2 % (1.7-9.3); NEUTROPHILS # (AUTO) 13.4 K/uL (1.8-7.7); NEUTROPHILS % (AUTO) 77.6 % (42.2-75.2); PLATELET COUNT (AUTO) 443 K/uL (140-450); RED BLOOD CELL COUNT(AUTO) 4.56 MIL/uL (4.20-5.40); RED CELL DISTRIBUTION WIDTH 14.6 % (11.6-13.7); WHITE BLOOD COUNT (AUTO) 17.3 K/uL (4.8-10.8)
[2023-08-13 21:06] LABS: INR 0.88 (0.8-1.2); PARTIAL THROMBOPLASTIN TIME 27.4 secs (22-35.6); PROTHROMBIN TIME 9.3 secs (10.8-13.4)
[2023-08-13 21:07] LABS: ANION GAP 10.3 (8-16); CALCIUM 8.4 mg/dL (8.5-10.1); CARBON DIOXIDE 31.3 mmol/L (21-32); CREATININE 0.6 mg/dL (0.6-1.3); POTASSIUM 3.6 mmol/L (3.5-5.1)
[2023-08-13] MEDS: PANTOPRAZOLE 40 MG INJ VIAL IVP ONE (22:09)
[2023-08-13] MEDS: KETOROLAC 30 MG/ML VIAL IVP ONE (22:10)
[2023-08-14 00:09] LABS: APPEARANCE,URINE CLEAR (CLEAR); BILIRUBIN,URINE NEGATIVE (NEGATIVE); BLOOD, URINE NEGATIVE (NEGATIVE); COLOR,URINE YELLOW (YELLOW); LEUKOCYTE ESTERASE ,URINE NEGATIVE (NEGATIVE); NITRITE, URINE NEGATIVE (NEGATIVE); PH,URINE 6.5 (5.0-9.0); PROTEIN,URINE NEGATIVE (NEGATIVE); UGLUCOSE NEGATIVE (NEGATIVE)
[2023-08-14 01:40] LABS: ALBUMIN 3.6 g/dL (3.4-5.0); BILIRUBIN,DIRECT 0.1 mg/dL (0.0-0.3); TOTAL BILIRUBIN 0.4 mg/dL (0.0-1.0); TOTAL PROTEIN, SERUM 7.9 g/dL (6.4-8.2)
[2023-08-14] MEDS ORDERED: ALBUTEROL 0.083% 2.5 MG/3 ML NEBU INH PRN (02:45)
[2023-08-14] MEDS ORDERED: ACETAMINOPHEN 325 MG TAB PO PRN (02:45)
[2023-08-14] MEDS ORDERED: ONDANSETRON 4 MG/2 ML VIAL IVP PRN ×2 (02:45→13:55)
[2023-08-14] MEDS: DEXT 5% /NACL 0.9% 1,000 ML IV SCH (03:16)
[2023-08-14] MEDS ORDERED: PIPERACILLIN/TAZOBACTAM 3.375 GM VIAL IV ONE (05:28)
[2023-08-14] MEDS: PIPERACILLIN/TAZOBACTAM 3.375 GM in DEXTROSE 5% 50 ML IV SCH (05:36)
[2023-08-14 05:56] LABS: BASOPHILS % (AUTO) 0.3 % (0.0-2.0); EOSINOPHILS # (AUTO) 0.1 K/uL (0-0.4); EOSINOPHILS % (AUTO) 1.5 % (0.0-4.0); HEMATOCRIT 35.2 % (36-48); HEMOGLOBIN 11.8 g/dL (12.0-16.0); LYMPHOCYTES # (AUTO) 2.2 K/uL (2.5-16.5); LYMPHOCYTES % (AUTO) 28.1 % (20.5-51.1); MEAN CORPUSCULAR HEMOGLOBIN 27 pg (27-31); MEAN CORPUSCULAR HGB CONC 34 g/dL (33-37); MONOCYTES # (AUTO) 0.8 K/uL (0.8-1.0); MONOCYTES % (AUTO) 9.8 % (1.7-9.3); NEUTROPHILS # (AUTO) 4.7 K/uL (1.8-7.7); NEUTROPHILS % (AUTO) 60.3 % (42.2-75.2); PLATELET COUNT (AUTO) 361 K/uL (140-450); RED BLOOD CELL COUNT(AUTO) 4.35 MIL/uL (4.20-5.40); RED CELL DISTRIBUTION WIDTH 14.8 % (11.6-13.7); WHITE BLOOD COUNT (AUTO) 7.7 K/uL (4.8-10.8)
[2023-08-14 06:35] LABS: ANION GAP 12.2 (8-16); CALCIUM 8.3 mg/dL (8.5-10.1); CARBON DIOXIDE 28.3 mmol/L (21-32); CREATININE 0.5 mg/dL (0.6-1.3); POTASSIUM 3.5 mmol/L (3.5-5.1)
[2023-08-14 06:46] LABS: BILIRUBIN,DIRECT 0.5 mg/dL (0.0-0.3); TOTAL BILIRUBIN 0.7 mg/dL (0.0-1.0); TOTAL PROTEIN, SERUM 6.9 g/dL (6.4-8.2)
[2023-08-14] MEDS: HYDROcodone/APAP 5/325 MG 1 TAB TAB PO PRN ×2 (06:53→21:52)
[2023-08-14 09:00] VITALS: PULSE 80; RESP 18; O2SAT 99
[2023-08-14] MEDS: PANTOPRAZOLE 40 MG INJ VIAL IVP SCH ×2 (09:29→13:55)
[2023-08-14] MEDS: MORPHINE SULFATE 2 MG/ML SYR IVP PRN (09:30)
[2023-08-14] MEDS: POTASSIUM CHL 20 MEQ/D5-1/2NS 1,000 ML IV SCH (14:05)
[2023-08-14 19:33] VITALS: BP 112/48; PULSE 80; RESP 18; TEMP 97.5; O2SAT 99
[2023-08-14 20:00] VITALS: BP 136/77; PULSE 75; RESP 19; TEMP 97.9; O2SAT 97
[2023-08-15 04:00] VITALS: BP 126/69; PULSE 80; RESP 19; TEMP 98.1; O2SAT 98
[2023-08-15] MEDS: MORPHINE SULFATE 2 MG/ML SYR IVP PRN (04:07)
[2023-08-15 05:36] LABS: BASOPHILS % (AUTO) 0.4 % (0.0-2.0); EOSINOPHILS # (AUTO) 0.2 K/uL (0-0.4); EOSINOPHILS % (AUTO) 2.6 % (0.0-4.0); HEMATOCRIT 35.8 % (36-48); HEMOGLOBIN 11.7 g/dL (12.0-16.0); LYMPHOCYTES # (AUTO) 2.8 K/uL (2.5-16.5); LYMPHOCYTES % (AUTO) 31.6 % (20.5-51.1); MEAN CORPUSCULAR HEMOGLOBIN 27 pg (27-31); MEAN CORPUSCULAR HGB CONC 33 g/dL (33-37); MEAN CORPUSCULAR VOLUME 82.4 fL (80-94); MONOCYTES # (AUTO) 0.6 K/uL (0.8-1.0); MONOCYTES % (AUTO) 7.2 % (1.7-9.3); NEUTROPHILS # (AUTO) 5.1 K/uL (1.8-7.7); NEUTROPHILS % (AUTO) 58.2 % (42.2-75.2); PLATELET COUNT (AUTO) 374 K/uL (140-450); RED BLOOD CELL COUNT(AUTO) 4.34 MIL/uL (4.20-5.40); RED CELL DISTRIBUTION WIDTH 15.1 % (11.6-13.7); WHITE BLOOD COUNT (AUTO) 8.8 K/uL (4.8-10.8)
[2023-08-15 06:13] LABS: ALBUMIN 2.9 g/dL (3.4-5.0); CALCIUM 8.1 mg/dL (8.5-10.1); CARBON DIOXIDE 29.4 mmol/L (21-32); CREATININE 0.6 mg/dL (0.6-1.3); POTASSIUM 3.4 mmol/L (3.5-5.1); TOTAL BILIRUBIN 0.5 mg/dL (0.0-1.0); TOTAL PROTEIN, SERUM 6.9 g/dL (6.4-8.2)
[2023-08-15 08:00] VITALS: PULSE 74; RESP 19; O2SAT 98
[2023-08-15 12:08] LABS: HEPATITIS A ANTIBODY IGM Negative (Negative); HEPATITIS B CORE AB TOTAL Negative (Negative); HEPATITIS B CORE, IGM Negative (Negative); HEPATITIS B SURFACE ANTIBODY Reactive (.); HEPATITIS B SURFACE ANTIGEN Negative (Negative); HEPATITIS C VIRUS ANTIBODY Non Reactive (Non Reactive)
[2023-08-15 16:00] VITALS: BP 157/73; PULSE 104; RESP 18; TEMP 97.6; O2SAT 98
[2023-08-15] MEDS: HYDROmorphone 1 MG/ML AMP IVP PRN (16:07)
[2023-08-15 18:47] LABS: HEPATITIS A ANTIBODY TOTAL Positive (Negative)
[2023-08-15 20:00] VITALS: BP 151/66; PULSE 110; RESP 18; TEMP 96.6; O2SAT 98
[2023-08-16 04:00] VITALS: BP 118/63; PULSE 82; RESP 18; TEMP 96.9; O2SAT 98
[2023-08-16 07:05] LABS: BASOPHILS % (AUTO) 0.2 % (0.0-2.0); EOSINOPHILS # (AUTO) 0.2 K/uL (0-0.4); EOSINOPHILS % (AUTO) 1.7 % (0.0-4.0); HEMATOCRIT 33.8 % (36-48); HEMOGLOBIN 11.2 g/dL (12.0-16.0); LYMPHOCYTES # (AUTO) 3.6 K/uL (2.5-16.5); LYMPHOCYTES % (AUTO) 35.7 % (20.5-51.1); MEAN CORPUSCULAR HEMOGLOBIN 27 pg (27-31); MEAN CORPUSCULAR HGB CONC 33 g/dL (33-37); MEAN CORPUSCULAR VOLUME 82.4 fL (80-94); MONOCYTES # (AUTO) 0.8 K/uL (0.8-1.0); MONOCYTES % (AUTO) 7.5 % (1.7-9.3); NEUTROPHILS # (AUTO) 5.5 K/uL (1.8-7.7); NEUTROPHILS % (AUTO) 54.9 % (42.2-75.2); PLATELET COUNT (AUTO) 395 K/uL (140-450); RED CELL DISTRIBUTION WIDTH 15.2 % (11.6-13.7)
[2023-08-16 07:19] LABS: ALBUMIN 2.9 g/dL (3.4-5.0); CALCIUM 8.1 mg/dL (8.5-10.1); CARBON DIOXIDE 28.6 mmol/L (21-32); CREATININE 0.5 mg/dL (0.6-1.3); POTASSIUM 3.6 mmol/L (3.5-5.1); TOTAL BILIRUBIN 0.3 mg/dL (0.0-1.0); TOTAL PROTEIN, SERUM 6.8 g/dL (6.4-8.2)
[2023-08-16 08:00] VITALS: PULSE 80; RESP 18; O2SAT 98
[2023-08-16] MEDS: POTASSIUM CHL 20 MEQ/NACL 0.9% 1,000 ML IV SCH (13:39)
[2023-08-16] MEDS: POTASSIUM CHL 20 MEQ/NACL 0.9% 1,000 ML IV ONE (13:58)
[2023-08-16 16:00] VITALS: BP 134/79; PULSE 90; RESP 18; TEMP 97.9; O2SAT 97
[2023-08-16 20:00] VITALS: BP 126/89; PULSE 85; RESP 18; TEMP 97.9; O2SAT 96
[2023-08-16] MEDS: PANTOPRAZOLE 40 MG INJ VIAL IVP SCH (21:02)
[2023-08-17 04:00] VITALS: BP 116/56; PULSE 69; RESP 18; TEMP 97.4; O2SAT 97
[2023-08-17 06:23] LABS: BASOPHILS % (AUTO) 0.3 % (0.0-2.0); EOSINOPHILS # (AUTO) 0.2 K/uL (0-0.4); EOSINOPHILS % (AUTO) 1.3 % (0.0-4.0); HEMATOCRIT 36.5 % (36-48); HEMOGLOBIN 11.9 g/dL (12.0-16.0); LYMPHOCYTES # (AUTO) 4.2 K/uL (2.5-16.5); LYMPHOCYTES % (AUTO) 36.6 % (20.5-51.1); MEAN CORPUSCULAR HEMOGLOBIN 27 pg (27-31); MEAN CORPUSCULAR HGB CONC 33 g/dL (33-37); MEAN CORPUSCULAR VOLUME 82.5 fL (80-94); MONOCYTES # (AUTO) 0.8 K/uL (0.8-1.0); MONOCYTES % (AUTO) 7.3 % (1.7-9.3); NEUTROPHILS # (AUTO) 6.2 K/uL (1.8-7.7); NEUTROPHILS % (AUTO) 54.5 % (42.2-75.2); PLATELET COUNT (AUTO) 421 K/uL (140-450); RED BLOOD CELL COUNT(AUTO) 4.43 MIL/uL (4.20-5.40); RED CELL DISTRIBUTION WIDTH 14.8 % (11.6-13.7); WHITE BLOOD COUNT (AUTO) 11.4 K/uL (4.8-10.8)
[2023-08-17 06:34] LABS: ALBUMIN 3.2 g/dL (3.4-5.0); ANION GAP 11.7 (8-16); CALCIUM 8.8 mg/dL (8.5-10.1); CARBON DIOXIDE 28.8 mmol/L (21-32); CREATININE 0.5 mg/dL (0.6-1.3); POTASSIUM 3.5 mmol/L (3.5-5.1); TOTAL BILIRUBIN 0.4 mg/dL (0.0-1.0); TOTAL PROTEIN, SERUM 7.5 g/dL (6.4-8.2)
[2023-08-17 08:00] VITALS: PULSE 86; RESP 18; O2SAT 99
[2023-08-17] MEDS: HYDROmorphone PFS 2 MG/ML SYR ONE ×2 (09:58→11:37)
[2023-08-17] MEDS: PROPOFOL 200 MG/20 ML VIAL IV ONE (09:58)
[2023-08-17] MEDS: ROCURONIUM 50 MG/5 ML VIAL IV ONE (10:01)
[2023-08-17] MEDS: LIDOCAINE 2% 100 MG/5 ML SYR IVP ONE (10:19)
[2023-08-17] MEDS: ceFAZolin 1,000 MG VIAL ONE ×2 (10:19)
[2023-08-17] MEDS ORDERED: NEOSTIGMINE 1:1000 10 MG/10 ML VIAL ONE (10:25)
[2023-08-17] MEDS: ceFAZolin 2,000 MG VIAL ONE (10:52)
[2023-08-17] MEDS: BUPIVACAINE-MPF 0.25% 30 ML VIAL INJ ONE (10:57)
[2023-08-17] MEDS: LIDOCAINE/EPI 1% 1:100000 20 ML VIAL INJ ONE (10:57)
[2023-08-17] MEDS ORDERED: ONDANSETRON 4 MG/2 ML VIAL IVP PRN (11:35)
[2023-08-17] MEDS ORDERED: MEPERIDINE 25 MG/ML SYR IVP PRN (11:35)
[2023-08-17] MEDS: DEXAMETHASONE 4 MG/ML VIAL ONE ×2 (11:39)
[2023-08-17] MEDS: GLYCOPYRROLATE 0.2 MG/ML VIAL ONE (11:39)
[2023-08-17] MEDS: ONDANSETRON 4 MG/2 ML VIAL ONE (11:40)
[2023-08-17] MEDS: HYDROmorphone 1 MG/ML AMP IVP PRN (11:56)
[2023-08-17 16:00] VITALS: BP_SYST 116; BP_SYST 124; BP_DIAS 56; BP_DIAS 71; PULSE 69; PULSE 81; RESP 18; TEMP 97.2; TEMP 97.4; O2SAT 95; O2SAT 97
[2023-08-17 20:00] VITALS: BP 132/59; PULSE 113; RESP 18; TEMP 98; O2SAT 97
[2023-08-18] MEDS: HYDROmorphone 1 MG/ML AMP IVP PRN ×2 (02:22→14:45)
[2023-08-18] MEDS: POTASSIUM CHL 20 MEQ/D5-1/2NS 0 ML IV ONE (02:54)
[2023-08-18 08:00] VITALS: BP 108/70; PULSE 100; PULSE 113; RESP 18; TEMP 97.9; O2SAT 97; O2SAT 99
[2023-08-18 16:00] VITALS: BP 136/86; PULSE 99; RESP 18; TEMP 98.6; O2SAT 96
[2023-08-18 20:00] VITALS: PULSE 89; RESP 18; O2SAT 96
[2023-08-19] VITALS: BP 124/66; PULSE 89; RESP 18; TEMP 98.2; O2SAT 96
[2023-08-19] MEDS: ACETAMINOPHEN 325 MG TAB PO PRN (02:48)
[2023-08-19] MEDS: NACL 0.9% 500 ML IV STA (03:31)
[2023-08-19 08:00] VITALS: BP 117/60; PULSE 91; RESP 18; TEMP 97.8; O2SAT 99
[2023-08-19] MEDS ORDERED: AMOX500C25 PO (11:27)
[2023-08-19] MEDS ORDERED: ACET-8905 PO (11:27)
== END 2023-08-19 13:40 | disposition home or self-care (01) | DRG 263 ==
LOC: MED 20:07 → MMU 08-14 02:50 → MTU 08-14 05:43
PROVIDERS: ADMIT Internal Medicine; ATTEND Internal Medicine
PROC: 0FT44ZZ Resection of Gallbladder, Percutaneous Endoscopic Approach (ICD-10-PCS; principal; 2023-08-17 10:00)
DX: K80.20 Calculus of gallbladder without cholecystitis without obstruction (principal); K85.10 Biliary acute pancreatitis without necrosis or infection; E44.0 Moderate protein-calorie malnutrition; R65.10 Systemic inflammatory response syndrome (SIRS) of non-infectious origin without acute organ dysfunction; E66.9 Obesity, unspecified; R74.01 Elevation of levels of liver transaminase levels; Z68.41 Body mass index [BMI] 40.0-44.9, adult; Z79.899 Other long term (current) drug therapy; Z98.84 Bariatric surgery status
CPT/HCPCS: 36415; 71045; 74160; 76705; 78445; 80048; 80053; 80076; 81003; 81025; 82948; 83690; 83880; 84484; 85025; 85610; 85730; 86704; 86706; 86708; 86709; 86803; 87340; 88304; 93005; 96374; 96375; 99285; C9113; J0690; J1100; J1170; J1885; J2001; J2270; J2405; J2543; J2704; J2710; J3490; J7030; J7060; Q0092; Q9967

== ENCOUNTER 2023-12-19 13:32 | Emergency (ER) | payer MEDICAID ==
[~2023-12-19] VITALS: Ht 160 cm; Wt 142.9 kg
[~2023-12-19 13:32] MED LIST changes: +ACET-8905 PO; +AMOX500C25 PO; -PNV91TAB10 PO
[2023-12-19 13:50] VITALS: BP 123/56; PULSE 100; RESP 18; TEMP 98.5; O2SAT 98
[2023-12-19 14:10] VITALS: O2SAT 98
[2023-12-19] MEDS: HYDROcodone/APAP 5/325 MG 1 TAB TAB PO ONE (14:55)
[2023-12-19] MEDS: ONDANSETRON 4 MG ODT PO ONE (14:56)
[2023-12-19 15:09] LABS: APPEARANCE,URINE CLEAR (CLEAR); BILIRUBIN,URINE 1+ (NEGATIVE); BLOOD, URINE 3+ (NEGATIVE); COLOR,URINE BROWN (YELLOW); LEUKOCYTE ESTERASE ,URINE TRACE (NEGATIVE); NITRITE, URINE NEGATIVE (NEGATIVE); PROTEIN,URINE 2+ (NEGATIVE); UGLUCOSE NEGATIVE (NEGATIVE); UROBILINOGEN,URINE 0.2 EU/dL (0.2 - 1)
[2023-12-19 15:16] LABS: ICTOTEST NEGATIVE (NEGATIVE)
[2023-12-19 15:18] LABS: RBC,URINE 11-20 (MOD) /HPF (0-5); WBC,URINE 0-5 /HPF (0-5)
[2023-12-19 15:19] LABS: BACTERIA,URINE FEW /HPF (None Seen); SQUAMOUS EPITHELIAL CELL,UR 4-10 (MOD) /LPF (0-3 (FEW))
[2023-12-19 15:24] LABS: BASOPHILS % (AUTO) 0.3 % (0.0-2.0); EOSINOPHILS # (AUTO) 0.2 K/uL (0-0.4); EOSINOPHILS % (AUTO) 1.5 % (0.0-4.0); HEMATOCRIT 35.1 % (36-48); HEMOGLOBIN 11.2 g/dL (12.0-16.0); LYMPHOCYTES # (AUTO) 3.7 K/uL (2.5-16.5); LYMPHOCYTES % (AUTO) 33.3 % (20.5-51.1); MEAN CORPUSCULAR HEMOGLOBIN 25 pg (27-31); MEAN CORPUSCULAR HGB CONC 32 g/dL (33-37); MEAN CORPUSCULAR VOLUME 77.6 fL (80-94); MONOCYTES # (AUTO) 0.7 K/uL (0.8-1.0); MONOCYTES % (AUTO) 6.4 % (1.7-9.3); NEUTROPHILS # (AUTO) 6.4 K/uL (1.8-7.7); NEUTROPHILS % (AUTO) 58.5 % (42.2-75.2); PLATELET COUNT (AUTO) 448 K/uL (140-450); RED BLOOD CELL COUNT(AUTO) 4.52 MIL/uL (4.20-5.40); RED CELL DISTRIBUTION WIDTH 15.1 % (11.6-13.7)
[2023-12-19 15:32] LABS: ANION GAP 10.8 (8-16); CALCIUM 8.5 mg/dL (8.5-10.1); CARBON DIOXIDE 30.1 mmol/L (21-32); CREATININE 0.6 mg/dL (0.6-1.3); POTASSIUM 3.9 mmol/L (3.5-5.1)
[2023-12-19 15:39] LABS: ALBUMIN 3.4 g/dL (3.4-5.0); BILIRUBIN,DIRECT 0.1 mg/dL (0.0-0.3); TOTAL BILIRUBIN 0.4 mg/dL (0.0-1.0); TOTAL PROTEIN, SERUM 7.8 g/dL (6.4-8.2)
[2023-12-19] MEDS ORDERED: KETOROLAC 30 MG/ML VIAL ONE (17:42)
[2023-12-19] MEDS ORDERED: ACET-8905 PO (17:48)
[2023-12-19] MEDS ORDERED: IBUP-2213 PO (17:48)
[2023-12-19] MEDS: KETOROLAC 30 MG/ML VIAL IM ONE (17:49)
[2023-12-19] MEDS: MORPHINE SULFATE 4 MG/ML SYR IM SCH (17:51)
[2023-12-19 18:40] VITALS: BP 136/68; PULSE 84; RESP 21; TEMP 98.5; O2SAT 98
== END 2023-12-19 18:41 | disposition home or self-care (01) ==
LOC: MED 13:32
DX: D27.0 Benign neoplasm of right ovary (principal); E11.9 Type 2 diabetes mellitus without complications; I10 Essential (primary) hypertension; Z90.49 Acquired absence of other specified parts of digestive tract; Z98.84 Bariatric surgery status; Z79.2 Long term (current) use of antibiotics; Z79.899 Other long term (current) drug therapy
CPT/HCPCS: 36415; 74176; 80048; 80076; 81001; 81025; 83690; 85025; 96372; 99285; J1885; J2270; Q0162